=== PATIENT | female | born 1995 | race Caucasian/White ===

== ENCOUNTER 2023-12-27 09:11 | Emergency (ER) | payer OTHER ==
[~2023-12-27] VITALS: Ht 157.5 cm; Wt 78.0 kg
[2023-12-27 09:27] VITALS: O2SAT 98
[2023-12-27] MEDS ORDERED: LIDO700A30 TP (10:43)
[2023-12-27] MEDS: LIDOCAINE 5% PATCH TOP SCH (10:47)
[2023-12-27 10:49] VITALS: BP 120/51; PULSE 61; RESP 18; TEMP 97.9
== END 2023-12-27 11:02 | disposition home or self-care (01) ==
LOC: ER 09:11
DX: S79.921A Unspecified injury of right thigh, initial encounter (principal); X58.XXXA Exposure to other specified factors, initial encounter; Y93.89 Activity, other specified; Y92.89 Other specified places as the place of occurrence of the external cause; Y99.8 Other external cause status
CPT/HCPCS: 99283